=== PATIENT | female | born 1935 | race Asian ===

== ENCOUNTER 2021-01-26 15:38 | Emergency (ER) | payer OTHER, MEDICAID ==
[~2021-01-26] VITALS: Ht 152.4 cm; Wt 52.3 kg
[2021-01-26] MEDS: ACETAMINOPHEN 500 MG TABLET PO ONE (17:59)
[2021-01-26 18:51] VITALS: BP 158/83
== END 2021-01-26 19:57 | disposition home or self-care (01) ==
LOC: EMS 15:42
DX: S40.012A Contusion of left shoulder, initial encounter (principal); S20.212A Contusion of left front wall of thorax, initial encounter; W19.XXXA Unspecified fall, initial encounter; Y93.89 Activity, other specified; Y92.89 Other specified places as the place of occurrence of the external cause; Y99.8 Other external cause status
CPT/HCPCS: 70450; 71101; 72125; 72128; 99285

== ENCOUNTER 2021-07-25 14:11 | Emergency (ER) | payer OTHER, MEDICAID ==
[~2021-07-25] VITALS: Ht 152.4 cm; Wt 37.3 kg
[2021-07-25] MEDS ORDERED: MORPHINE SULFATE 15 MG IR TABLET PO ONE (16:00)
[2021-07-25 17:00] VITALS: BP 126/73
== END 2021-07-25 17:21 | disposition hospice, home (50) ==
LOC: EMS 14:11
DX: S20.211A Contusion of right front wall of thorax, initial encounter (principal); W18.39XA Other fall on same level, initial encounter; Y93.89 Activity, other specified; Y92.89 Other specified places as the place of occurrence of the external cause; Y99.8 Other external cause status
CPT/HCPCS: 71101; 99283

== ENCOUNTER 2022-06-26 18:57 | Emergency (ER) | payer OTHER, MEDICAID ==
[~2022-06-26] VITALS: Ht 160 cm; Wt 41.2 kg
[2022-06-26 20:00] VITALS: BP 176/92
== END 2022-06-26 20:53 | disposition left against medical advice (07) ==
LOC: EMS 18:57
DX: R06.02 Shortness of breath (principal); M19.90 Unspecified osteoarthritis, unspecified site
CPT/HCPCS: 99283; Z7502